=== PATIENT | female | born 1980 | race Caucasian/White ===

== ENCOUNTER 2017-10-15 09:06 | Emergency (ER) | payer SELFPAY ==
[2017-10-15] MEDS ORDERED: HYDROCODONE/APAP 10/325 TAB ONE (10:00)
--- NOTE | 2017-10-15 10:01 | RAD REPORT ---
EXAM DESCRIPTION: CT - CTHCSPWOC - 10/15/2017 9:46 am CLINICAL HISTORY: Trauma, head and neck injury. PAIN COMPARISON: No comparisons TECHNIQUE: Axial 5 mm thick images of the head were obtained. Axial 2 mm thick images of the cervical spine were obtained with sagittal and coronal reconstruction images generated and reviewed. All CT scans are performed using dose optimization technique as appropriate and may include automated exposure control or mA/KV adjustment according to patient size. FINDINGS: CT HEAD WITHOUT CONTRAST: No acute hemorrhage, hydrocephalus or extra-axial collection is identified.No areas of brain edema or midline shift. The paranasal sinuses and mastoids are clear.The calvarium is intact. CT CERVICAL SPINE WITHOUT CONTRAST: No fracture or subluxation.Fusion hardware is present spanning C5-6 with prominent kyphosis.No prever tebral soft tissues swelling is identified. IMPRESSION: No acute intracranial or cervical spine findings. Postsurgical changes with hardware in place at C5-6 with prominent kyphosis.
--- NOTE | 2017-10-15 10:49 | ER ---
Nurse's Notes [facility] Name: Vivian Juarez Age: 37 yrs Sex: Female : 1980 Arrival Date: 10/15/2017 Time: 09:10 Bed 12 Private MD: Out, [facility] Diagnosis: Strain of muscle, fascia and tendon at neck level Presentation: 10/15 09:21 Presenting complaint: Patient states: I was chasing my baby 2 days ago and I fell and ph landed on my back and butt, I have artificial discs in my neck and I didn't land on it but it is really hurting, especially when I try to turn my head." Pt reports neck pain that radiates to carmine shoulders, denies head injury or LOC. Care prior to arrival: None. Mechanism of Injury: Fall from standing position. Trauma event details: Injury occurred in the [facility], Injury occurred: at home. Injury occurred: October 13, 2017. 09:21 Acuity: ADONIS 4 ph 09:21 Method Of Arrival: Ambulatory 09:26 Transition of care: patient was not received from another setting of care. Onset of ph symptoms was October 13, 2017. Risk Assessment: Do you want to hurt yourself or someone else? Patient reports no desire to harm self or others. Initial Sepsis Screen: Does the patient meet any 2 criteria? No. Patient's initial sepsis screen is negative. Does the patient have a suspected source of infection? No. Patient's initial sepsis screen is negative. 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 - Social history:: Smoking status: Patient uses tobacco products, smokes one-half pack cigarettes per day. - Ebola Screening: : No symptoms or risks identified at this time. Screenin:25 Abuse screen: Denies threats or abuse. Denies injuries from another. Nutritional ph screening: No deficits noted. Tuberculosis screening: No symptoms or risk factors identified. Fall Risk None identified. Assessment: 09:26 General: Appears in no apparent distress. uncomfortable, slender, Behavior is calm, ph cooperative, appropriate for age. Pain: Complains of pain in back of neck Pain radiates to left trapezius and right trapezius Pain currently is 10 out of 10 on a pain scale. Neuro: Level of Consciousness is awake, alert, obeys commands, Oriented to person, place, time, situation, Moves all extremities. Gait is steady, Denies weakness dizziness. Cardiovascular: Capillary refill < 3 seconds in bilateral fingers Patient's skin is warm and dry. Respiratory: Airway is patent Respiratory effort is even, unlabored. Derm: Skin is intact, is healthy with good turgor, Skin is pink, warm \\T\\ dry. Musculoskeletal: Circulation, motion, and sensation intact. Range of motion: intact in all extremities, Reports pain in back of neck. Vital Signs: 09:25 BP 114 / 88; Pulse 75; Resp 18; Temp 98.4; Pulse Ox 99% on R/A; Weight 68.04 kg; Height ph 5 ft. 4 in. (162.56 cm); Pain 10; 09:25 Body Mass Index 25.75 (68.04 kg, 162.56 cm) ph ED Course: 09:10 Patient arrived in ED. sb2 09:11 Out, [facility] is Private Physician. sb2 09:20 Bhavesh Rocha NP is PHCP. pm1 09:20 Andrew Weeks MD is Attending Physician. pm1 09:21 Viky Martinez, ADILSON is Primary Nurse. ph 09:23 Triage completed. ph 09:25 Arm band placed on Patient placed in an exam room. ph 09:26 Patient has correct armband on for positive identification. Call light in reach. Warm ph blanket given. 09:46 CT Head C Spine In Process Unspecified. EDMS 11:02 No provider procedures requiring assistance completed. Patient did not have IV access aj1 during this emergency room visit. Administered Medications: 09:58 Drug: [place] 10 mg-325 mg 1 tabs Route: PO; aj1 Outcome: 10:48 Discharge ordered by MD. pm1 11:02 Discharged to home ambulatory. aj1 11:02 Condition: good 11:02 Discharge instructions given to patient, Instructed on discharge instructions, follow up and referral plans. no drinking with medication, no driving heavy equipment, medication usage, Demonstrated understanding of instructions, follow-up care, medications, Prescriptions given X 2. 11:02 Patient left the ED. aj1 Signatures: Dispatcher [employer] EDKim Wing RN RN aj1 Viky Martinez RN RN Bhavesh Mo, [employer] pm1 Dorcas Banerjee sb2
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
== END 2017-10-15 11:02 | disposition home or self-care (01) ==
LOC: ER 09:06
DX: S16.1XXA Strain of muscle, fascia and tendon at neck level, initial encounter (principal); Y93.02 Activity, running; Y93.89 Activity, other specified; Y92.9 Unspecified place or not applicable; Z88.5 Allergy status to narcotic agent; Z88.6 Allergy status to analgesic agent; Z88.8 Allergy status to other drugs, medicaments and biological substances; F17.210 Nicotine dependence, cigarettes, uncomplicated
CPT/HCPCS: 70450; 72125; 99283